=== PATIENT | female | born 1990 | race American Indian/Alaskan Native ===

== ENCOUNTER 2020-06-22 11:03 | Emergency (ER) | payer SELFPAY ==
[2020-06-22] MEDS ORDERED: ONDANSETRON 4 MG ODT TAB PO ONE (11:50)
[2020-06-22] MEDS ORDERED: HYDROcodone/ACETAMINOPHEN 5-325 MG TAB PO ONE (11:50)
--- NOTE | 2020-06-22 11:51 | Emergency Department Report ---
ED Back Pain/Injury HPI - General Chief Complaint: Urogenital-Female Stated Complaint: BACK PAIN Time Seen by Provider: 06/22/20 11:50 Source: patient Limitations: No Limitations - History of Present Illness Initial Comments: 30-year-old obese female presents to the ER today with complaints to the left lower back/left flank area that radiates around into the left abdomen. Patient states that she woke up with the pain yesterday. She states been a constant stabbing pain that sometimes radiates down into her thigh with associated nausea, as well as diarrhea. She states that she has had 4-6 episodes of watery stools last night and 2 episodes this morning. She denies any melena or hematochezia or mucus in the stool. She states that nothing seems to worsen the pain or makes it better. She reports urinary frequency but denies any other UTI symptoms. She denies any fever or chills. She denies any injury or strenuous activity that could result in the back pain. She has a history of PCOS, and a history of irregular menstrual cycles and her last menstrual cycle was about a year ago. She is not currently on any control. She reports no abnormal vaginal bleeding or discharge. She denies any bowel or bladder incontinence, lower extremity numbness, tingling or weakness or saddle anesthesia. She denies similar symptoms in the past. MD Complaint: back pain -: Sudden (yesterday ) - Related Data Previous Rx's Medication Instructions Recorded Last Taken Type Ibuprofen [Motrin 600 MG tab] 600 mg PO Q8H PRN #15 tablet 01/06/18 Unknown Rx Ketorolac [Toradol] 10 mg PO Q6H PRN #20 tablet 06/22/20 Unknown Rx Ondansetron [Zofran Odt] 4 mg PO Q8HR PRN #15 tab.rapdis 06/22/20 Unknown Rx methOCARBAMOL [Robaxin TAB] 750 mg PO Q8H PRN #30 tablet 06/22/20 Unknown Rx Allergies Allergy/AdvReac Type Severity Reaction Status Date / Time banana AdvReac Vomiting Verified 06/22/20 11:29 Latex, Natural Rubber AdvReac Vomiting Verified 06/22/20 11:29 ED Review of Systems ROS: Stated complaint: BACK PAIN Other details as noted in HPI Comment: All other systems reviewed and negative Constitutional: denies: chills, fever Eyes: denies: eye pain, eye discharge, vision change ENT: denies: ear pain, throat pain Respiratory: denies: cough, shortness of breath, SOB with exertion, SOB at rest, wheezing Cardiovascular: denies: chest pain, palpitations Endocrine: no symptoms reported Gastrointestinal: abdominal pain, nausea, diarrhea. denies: vomiting, constipation, hematemesis, melena, hematochezia Genitourinary: frequency. denies: urgency, dysuria, hematuria, discharge, abnormal menses Musculoskeletal: back pain Skin: denies: rash, lesions Neurological: denies: headache, weakness, numbness, paresthesias, confusion, abnormal gait, vertigo Psychiatric: denies: anxiety, depression, auditory hallucinations, visual hallucinations, homicidal thoughts, suicidal thoughts Hematological/Lymphatic: denies: easy bleeding, easy bruising ED Past Medical Hx - Past Medical History Hx Asthma: Yes - Social History Smoking Status: Never Smoker Substance Use Type: None - Medications Home Medications: Home Medications Medication Instructions Recorded Confirmed Last Taken Type Ibuprofen [Motrin 600 MG tab] 600 mg PO Q8H PRN #15 tablet 01/06/18 Unknown Rx Ketorolac [Toradol] 10 mg PO Q6H PRN #20 tablet 06/22/20 Unknown Rx Ondansetron [Zofran Odt] 4 mg PO Q8HR PRN #15 tab.rapdis 06/22/20 Unknown Rx methOCARBAMOL [Robaxin TAB] 750 mg PO Q8H PRN #30 tablet 06/22/20 Unknown Rx ED Physical Exam - General Limitations: No Limitations General appearance: alert, in distress (patient appears to be uncomfortable due to pain ), obese - Head Head exam: Present: atraumatic, normocephalic, normal inspection - Eye Eye exam: Present: normal appearance, PERRL, EOMI Pupils: Present: normal accommodation - ENT ENT exam: Present: normal exam, mucous membranes moist - Neck Neck exam: Present: normal inspection, full ROM - Respiratory Respiratory exam: Absent: normal lung sounds bilaterally, respiratory distress, wheezes - Cardiovascular Cardiovascular Exam: Present: regular rate, normal rhythm, normal heart sounds - GI/Abdominal GI/Abdominal exam: Present: soft, tenderness (LUQ, mild ). Absent: distended, guarding, rebound, rigid - Extremities Exam Extremities exam: Present: normal inspection, full ROM, normal capillary refill. Absent: tenderness, pedal edema, joint swelling, calf tenderness - Back Exam Back exam: Present: normal inspection, full ROM (but there is some pain on ROM of lumbar spine ), CVA tenderness (L), paraspinal tenderness (mild paraspinal muscle/soft tissue ttp mid to lower left lumbar area). Absent: vertebral tenderness - Neurological Exam Neurological exam: Present: alert, oriented X3, CN II-XII intact, normal gait. Absent: motor sensory deficit - Psychiatric Psychiatric exam: Present: normal affect, normal mood - Skin Skin exam: Present: intact ED Course Vital Signs 06/22/20 06/22/20 06/22/20 11:26 11:58 17:15 Temperature 98.4 F 98.6 F Pulse Rate 64 74 Respiratory 18 20 20 Rate Blood Pressure 141/86 Blood Pressure 138/84 [Left] O2 Sat by Pulse 95 98 Oximetry ED Medical Decision Making - Lab Data Result diagrams: 06/22/20 12:26 06/22/20 12:26 - Radiology Data Radiology results: report reviewed Patient: MARTINA ADKINS MR#: [id number] : 1990 Acct:[id number] Age/Sex: 30 / F ADM Date: 06/22/20 Loc: ED Attending Dr: Ordering Physician: CHALO QUEZADA Date of Service: 06/22/20 Procedure(s): CT abdomen pelvis wo con Accession Number(s): [id number] cc: CHALO QUEZADA CT ABDOMEN AND PELVIS WITHOUT CONTRAST INDICATION / CLINICAL INFORMATION: Left flank pain. TECHNIQUE: Axial CT images were obtained through the abdomen and pelvis without IV contrast. Sagittal and coronal reformatted images. All CT scans at this location are performed using CT dose reduction for ALARA by means of automated exposure control. COMPARISON: 01/06/2018 FINDINGS: LOWER CHEST: No significant abnormality. LIVER: Mild hepatomegaly with steatosis is unchanged. GALLBLADDER: No significant abnormality. BILE DUCTS: No significant abnormality. PANCREAS: No significant abnormality. SPLEEN: No significant abnormality. ADRENALS: No significant abnormality. RIGHT KIDNEY and URETER: No significant abnormality. LEFT KIDNEY and URETER: No significant abnormality. STOMACH and SMALL BOWEL: No significant abnormality. COLON: No significant abnormality. APPENDIX: No significant abnormality. PERITONEUM: No free fluid. No free air. No fluid collection. LYMPH NODES: No significant adenopathy. AORTA and ARTERIES: No significant abnormality. IVC and VEINS: No significant abnormality. URINARY BLADDER: No significant abnormality. REPRODUCTIVE ORGANS: No significant abnormality. ADDITIONAL FINDINGS: None. SKELETAL SYSTEM: Moderate degenerative disc disease at L5-S1. IMPRESSION: No acute process. No clear explanation for left flank pain. Mild hepatomegaly with steatosis, stable. Moderate degenerative changes at L5-S1. Signer Name: Be Churchill Jr, MD Signed: 06/22/2020 2:30 PM Workstation Name: [id number] Transcribed By: TTR Dictated By: BE CHURCHILL JR, MD Electronically Authenticated By: BE CHURCHILL JR, MD Signed Date/Time: 06/22/201429 DD/ 22 TD/TT: - Medical Decision Making 30-year-old obese female presents to the ER today with complaints to the left lower back/left flank area that radiates around into the left abdomen. Patient states that she woke up with the pain yesterday. She states been a constant stabbing pain that sometimes radiates down into her thigh with associated nausea, as well as diarrhea. She states that she has had 4-6 episodes of watery stools last night and 2 episodes this morning. She denies any melena or hematochezia or mucus in the stool. She states that nothing seems to worsen the pain or makes it better. She reports urinary frequency but denies any other UTI symptoms. She denies any fever or chills. She denies any injury or strenuous activity that could result in the back pain. She has a history of PCOS, and a history of irregular menstrual cycles and her last menstrual cycle was about a year ago. She is not currently on any control. She reports no abnormal vaginal bleeding or discharge. She denies any bowel or bladder incontinence, lower extremity numbness, tingling or weakness or saddle anesthesia. She denies similar symptoms in the past. 1705: Patient resting comfortably and is sitting up in bed on phone. She appears to be felling better. She is well appearing, not toxic, well hydrated, and she is neurologically intact with normal gait. Labs/CT reviewed - Other than elevated glucose of 171, remaining labs unremarkable. Patient denies hx of DM and she states she had a pop tart this morning but I did recommend that she follow up with PCP to continue monitoring her glucose levels. Her CT shows mod DDD lumbar spine but otherwise nothing acute. Informed patient that her pain could be coming from the DDD in her spine and therefore recommend follow up with ortho/web content specialist for outpatient MRI especially is her symptoms continues. There is no indication for additional work up, admission or specialist consult at this time. Patient expressed understanding of instructions and agreed with plan. patient stable a time of discharge. Critical care attestation.: If time is entered above; I have spent that time in minutes in the direct care of this critically ill patient, excluding procedure time. ED Disposition Clinical Impression: Lumbar pain, Flank pain, DJD (degenerative joint disease), lumbar, Diarrhea, Elevated blood sugar level Disposition: TO HOME OR SELFCARE Is pt being admited?: No Does the pt Need Aspirin: No Condition: Stable Instructions: Diarrhea, Adult, Acute Back Pain, Adult, Hyperglycemia, [id number]-Fxex, Degenerative Disk Disease Additional Instructions: Take the zofran, toradol and robaxin as prescribed. Drink lots of fluids. You can take immodium from over the counter if you continue to have diarrhea. I recommend that you follow up with Primary care physician listed on your discharge instructions to continue monitoring your blood sugars and and the web content specialist ([facility]) for evaluation of your back pain especially if your back pain continues, you may need outpatient MRI. Return to the ER if your symptoms changes or worsens in any way. Prescriptions: methOCARBAMOL [Robaxin TAB] 750 mg PO Q8H PRN #30 tablet PRN Reason: pain/spasm Ketorolac [Toradol] 10 mg PO Q6H PRN #20 tablet PRN Reason: Pain Ondansetron [Zofran Odt] 4 mg PO Q8HR PRN #15 tab.rapdis PRN Reason: Nausea Referrals: MANDI CAMERON MD [Staff Physician] - 3-5 Days Forms: Work/School Release Form(ED) Time of Disposition: 15:13
[2020-06-22 12:44] LABS: Basophils # (Auto) 0.1 K/mm3 (0.0-0.1); Basophils % (Auto) 0.9 % (0.0-1.8); Eosinophils # (Auto) 0.4 K/mm3 (0.0-0.4); Eosinophils % (Auto) 6.2 % (0.0-4.3); Hematocrit 38.2 % (30.3-42.9); Lymphocytes # (Auto) 2.3 K/mm3 (1.2-5.4); Lymphocytes % (Auto) 38.7 % (13.4-35.0); Mean Corpuscular HGB Conc 34 % (30-34); Mean Corpuscular Volume 98 fl (79-97); Monocytes # (Auto) 0.3 K/mm3 (0.0-0.8); Monocytes % (Auto) 5.3 % (0.0-7.3); Platelet Count 326 K/mm3 (140-440); Red Blood Count 3.91 M/mm3 (3.65-5.03)
[2020-06-22 13:35] LABS: Bilirubin,Urine NEG (Negative); Blood,Urine NEG (Negative); Color,Urine Yellow (Yellow); Mucus,Urine 1+ /HPF; Protein,Urine <15 mg/dL mg/dL (Negative); Urobilinogen,Urine < 2.0 mg/dL (<2.0)
--- NOTE | 2020-06-22 14:35 | Cat Scan Report ---
CT ABDOMEN AND PELVIS WITHOUT CONTRAST INDICATION / CLINICAL INFORMATION: Left flank pain. TECHNIQUE: Axial CT images were obtained through the abdomen and pelvis without IV contrast. Sagittal and rodriguez l reformatted images. All CT scans at this location are performed using CT dose reduction for ALARA b y means of automated exposure control. COMPARISON: 01/06/2018 FINDINGS: LOWER CHEST: No significant abnormality. LIVER: Mild hepatomegaly with steatosis is unchanged. GALLBLADDER: No significant abnormality. BILE DUCTS: No significant abnormality. PANCREAS: No significant abnormality. SPLEEN: No significant abnormality. ADRENALS: No significant abnormality. RIGHT KIDNEY and URETER: No significant abnormality. LEFT KIDNEY and URETER: No significant abnormality. STOMACH and SMALL BOWEL: No significant abnormality. COLON: No significant abnormality. APPENDIX: No significant abnormality. PERITONEUM: No free fluid. No free air. No fluid collection. LYMPH NODES: No significant adenopathy. AORTA and ARTERIES: No significant abnormality. IVC and VEINS: No significant abnormality. URINARY BLADDER: No significant abnormality. REPRODUCTIVE ORGANS: No significant abnormality. ADDITIONAL FINDINGS: None. SKELETAL SYSTEM: Moderate degenerative disc disease at L5-S1. IMPRESSION: No acute process. No clear explanation for left flank pain. Mild hepatomegaly with steatosis, stable. Moderate degenerative changes at L5-S1. Signer Name: Be Churchill Jr, MD Signed: 06/22/2020 2:30 PM Workstation Name: [id number]
[2020-06-22 14:56] LABS: Alanine Aminotransferase 38 units/L (7-56); Albumin 3.9 g/dL (3.9-5); Blood Urea Nitrogen 5 mg/dL (7-17); Calcium 8.4 mg/dL (8.4-10.2); Hemolysis Index 12
[2020-06-22 15:01] LABS: BUN/Creatinine Ratio 7
[2020-06-22 17:16] VITALS: BP 138/84
== END 2020-06-22 17:16 | disposition home or self-care (01) ==
LOC: ED 11:03
DX: M51.36 Other intervertebral disc degeneration, lumbar region (principal); R73.9 Hyperglycemia, unspecified; J45.909 Unspecified asthma, uncomplicated; Z79.899 Other long term (current) drug therapy
CPT/HCPCS: 36415; 74176; 80053; 81001; 83690; 83735; 84703; 85025; Q0162

== ENCOUNTER 2020-11-01 09:35 | Emergency (ER) | payer SELFPAY ==
--- NOTE | 2020-11-01 10:55 | Emergency Department Report ---
ED Syncope HPI - General Chief Complaint: Medical Clearance Stated Complaint: IRON LOW Time Seen by Provider: 11/01/20 10:42 Source: patient Exam Limitations: no limitations - History of Present Illness Initial Comments: This is a 30-year-old female who presents to the emergency room after syncopal episode. Patient states she passed out while at work. Her coworker brought her in for further evaluation. Patient states she has had to give plasma 1 week ago and was denied due to low iron. She was referred to the emergency room for follow-up but did not go. Patient states she did not go because she did not have any symptoms. Reports LMP 10/09/20 was very heavy. States this happens every quarter due to PCOS. She reports dizziness is worse with transitions. She denies visual changes, fever, chills, headache, or injury. Timing/Prior Episodes: no prior history, single episode today Precipitating Factors: Positive: lightheadedness Context: standing Loss of Consciousness: no loss of consciousness Current Symptoms: dizziness - Related Data Allergies/Adverse Reactions: Allergies banana Adverse Reaction (Verified 06/22/20 11:29) Vomiting Latex, Natural Rubber Adverse Reaction (Verified 06/22/20 11:29) Vomiting Home Medications: Ambulatory Orders Ibuprofen [Motrin 600 MG tab] 600 mg PO Q8H PRN #15 tablet 01/06/18 Ketorolac [Toradol] 10 mg PO Q6H PRN #20 tablet 06/22/20 Ondansetron [Zofran Odt] 4 mg PO Q8HR PRN #15 tab.rapdis 06/22/20 methOCARBAMOL [Robaxin TAB] 750 mg PO Q8H PRN #30 tablet 06/22/20 ED Review of Systems ROS: Stated complaint: IRON LOW Other details as noted in HPI Constitutional: denies: chills, fever ENT: denies: ear pain, throat pain Respiratory: denies: cough, shortness of breath, wheezing Cardiovascular: denies: chest pain, palpitations Gastrointestinal: denies: abdominal pain, nausea, diarrhea Neurological: vertigo. denies: headache, weakness, paresthesias Psychiatric: denies: anxiety, depression ED Past Medical Hx - Past Medical History Previous Medical History?: Yes Hx Asthma: Yes - Surgical History Past Surgical History?: No - Social History Smoking Status: Never Smoker Substance Use Type: None - Medications Home Medications: Home Medications Medication Instructions Recorded Confirmed Last Taken Type Ibuprofen [Motrin 600 MG tab] 600 mg PO Q8H PRN #15 tablet 01/06/18 Unknown Rx Ketorolac [Toradol] 10 mg PO Q6H PRN #20 tablet 06/22/20 Unknown Rx Ondansetron [Zofran Odt] 4 mg PO Q8HR PRN #15 tab.rapdis 06/22/20 Unknown Rx methOCARBAMOL [Robaxin TAB] 750 mg PO Q8H PRN #30 tablet 06/22/20 Unknown Rx ED Physical Exam - General Limitations: No Limitations General appearance: alert, in no apparent distress, obese - Eye Eye exam: Present: normal appearance, EOMI. Absent: nystagmus Pupils: Present: normal accommodation - ENT ENT exam: Present: mucous membranes moist - Respiratory Respiratory exam: Present: normal lung sounds bilaterally. Absent: respiratory distress - Cardiovascular Cardiovascular Exam: Present: regular rate, normal rhythm. Absent: systolic murmur, diastolic murmur, rubs, gallop - Neurological Exam Neurological exam: Present: alert, oriented X3, CN II-XII intact, reflexes normal - Psychiatric Psychiatric exam: Present: normal affect, normal mood - Skin Skin exam: Present: warm, dry, intact, normal color. Absent: rash ED Course Vital Signs 11/01/20 11/01/20 11/01/20 10:18 11:44 17:16 Temperature 98.3 F 97.8 F Pulse Rate 64 58 L Respiratory 18 12 16 Rate Blood Pressure 148/73 Blood Pressure 126/74 [Right] O2 Sat by Pulse 98 98 98 Oximetry ED Medical Decision Making - Lab Data Result diagrams: 11/01/20 11:40 11/01/20 11:40 Vital Signs 11/01/20 11/01/20 11/01/20 10:18 11:44 17:16 Temperature 98.3 F 97.8 F Pulse Rate 64 58 L Respiratory 18 12 16 Rate Blood Pressure 148/73 Blood Pressure 126/74 [Right] O2 Sat by Pulse 98 98 98 Oximetry Lab Results 11/01/20 11/01/20 Range/Units 11:40 11:40 WBC 7.4 (4.5-11.0) K/mm3 RBC 3.69 (3.65-5.03) M/mm3 Hgb 12.5 (10.1-14.3) gm/dl Hct 36.2 (30.3-42.9) % MCV 98 H (79-97) fl MCH 34 H (28-32) pg MCHC 35 H (30-34) % RDW 13.1 L (13.2-15.2) % Plt Count 416 (140-440) K/mm3 Lymph % (Auto) 35.7 H (13.4-35.0) % Sequoyah % (Auto) 5.3 (0.0-7.3) % Eos % (Auto) 7.5 H (0.0-4.3) % Baso % (Auto) 1.0 (0.0-1.8) % Lymph # (Auto) 2.7 (1.2-5.4) K/mm3 Sequoyah # (Auto) 0.4 (0.0-0.8) K/mm3 Eos # (Auto) 0.6 H (0.0-0.4) K/mm3 Baso # (Auto) 0.1 (0.0-0.1) K/mm3 Seg Neutrophils % 50.5 (40.0-70.0) % Seg Neutrophils # 3.8 (1.8-7.7) K/mm3 Sodium 142 (137-145) mmol/L Potassium 4.0 (3.6-5.0) mmol/L Chloride 103.3 (98-107) mmol/L Carbon Dioxide 27 (22-30) mmol/L Anion Gap 16 mmol/L BUN 8 (7-17) mg/dL Creatinine 0.6 (0.6-1.2) mg/dL Estimated GFR > 60 ml/min BUN/Creatinine Ratio 13 % Glucose 115 H (65-100) mg/dL Calcium 9.8 (8.4-10.2) mg/dL Total Bilirubin 0.70 (0.1-1.2) mg/dL AST 34 (5-40) units/L ALT 27 (7-56) units/L Alkaline Phosphatase 73 (35-129) units/L Total Protein 7.4 (6.3-8.2) g/dL Albumin 4.3 (3.9-5) g/dL Albumin/Globulin Ratio 1.4 % - Radiology Data Radiology results: report reviewed . CT head/brain wo con INDICATION: SYNCOPE. TECHNIQUE: All CT scans at this location are performed using CT dose reduction for ALARA by means of automated exposure control. COMPARISON: None available. FINDINGS: There is no evidence of hemorrhage, hydrocephalus, brain edema, or mass effect/mass lesion. There is overall normal brain formation and brain volume for the patient's age. Ventricular and cisternal/sulcal size is normal for age. The included paranasal sinuses and mastoid air cells are clear. The orbits appear unremarkable. IMPRESSION: 1. No acute intracranial abnormality. Signer Name: Huey Baez MD Signed: 11/01/2020 2:20 PM Workstation Name: [id number] - Medical Decision Making 30 y.o. female that presents with dizziness and near syncopal episode today. Denies asthma, SOB, palpations, fever, or dyspnea. Vitals stable. All labs unremarkable for emergent chest pain. Based on history, exam, and findings, presentation not consistent with seizure, stroke, symptomatic anemia, acute infectious process. Prior to discharge symptoms are controlled and patient is well-appearing. Referrals given for PCP follow-up. Discharged home stable. Follow up with PCP in 24-48 hours. Given strict return instructions. Critical care attestation.: If time is entered above; I have spent that time in minutes in the direct care of this critically ill patient, excluding procedure time. ED Disposition Clinical Impression: Dizziness of unknown cause Disposition: 01 HOME / SELF CARE / HOMELESS Is pt being admited?: No Condition: Stable Instructions: Near-Syncope, Bmst-as-Tboy, Dizziness Referrals: [facility] [Provider Group] - 3-5 Days [facility] [Outside] - 3-5 Days Forms: Work/School Release Form(ED) Time of Disposition: 16:28
[2020-11-01] MEDS ORDERED: SODIUM CHLORIDE 0.9% 1000 ML 1,000 ML IV ONE (11:57)
[2020-11-01 12:33] LABS: Basophils # (Auto) 0.1 K/mm3 (0.0-0.1); Eosinophils # (Auto) 0.6 K/mm3 (0.0-0.4); Eosinophils % (Auto) 7.5 % (0.0-4.3); Hematocrit 36.2 % (30.3-42.9); Hemoglobin 12.5 gm/dl (10.1-14.3); Lymphocytes # (Auto) 2.7 K/mm3 (1.2-5.4); Lymphocytes % (Auto) 35.7 % (13.4-35.0); Mean Corpuscular HGB Conc 35 % (30-34); Mean Corpuscular Volume 98 fl (79-97); Monocytes # (Auto) 0.4 K/mm3 (0.0-0.8); Monocytes % (Auto) 5.3 % (0.0-7.3); Platelet Count 416 K/mm3 (140-440); Red Blood Count 3.69 M/mm3 (3.65-5.03); Red Cell Distribution Width 13.1 % (13.2-15.2)
[2020-11-01 12:44] LABS: Alanine Aminotransferase 27 units/L (7-56); Albumin 4.3 g/dL (3.9-5); Blood Urea Nitrogen 8 mg/dL (7-17); Calcium 9.8 mg/dL (8.4-10.2); Hemolysis Index 4
[2020-11-01 12:53] LABS: BUN/Creatinine Ratio 13
[2020-11-01] MEDS ORDERED: KETOROLAC 30 MG/1 ML INJ IV ONE (13:18)
--- NOTE | 2020-11-01 14:25 | Cat Scan Report ---
. CT head/brain wo con INDICATION: SYNCOPE. TECHNIQUE: All CT scans at this location are performed using CT dose reduction for ALARA by means of automated e xposure control. COMPARISON: None available. FINDINGS: There is no evidence of hemorrhage, hydrocephalus, brain edema, or mass effect/mass lesion. There is overall normal brain formation and brain volume for the patient's age. Ventricular and cisternal/sulc al size is normal for age. The included paranasal sinuses and mastoid air cells are clear. The orbits appear unremarkable. IMPRESSION: 1. No acute intracranial abnormality. Signer Name: Huey Baez MD Signed: 11/01/2020 2:20 PM Workstation Name: [id number]
[2020-11-01 17:17] VITALS: BP 148/73
== END 2020-11-01 19:33 | disposition home or self-care (01) ==
LOC: ED 09:35
DX: R42 Dizziness and giddiness (principal); R55 Syncope and collapse
CPT/HCPCS: 36415; 70450; 80053; 85025; 96361; 96374; 99284; J7030

== ENCOUNTER 2021-10-17 19:58 | Emergency (ER) | payer SELFPAY ==
[2021-10-17] MEDS ORDERED: IPRATROPIUM/ALBUTEROL SULFATE 3 ML AMPUL.NEB IH ONE ×2 (20:08→20:09)
[2021-10-17] MEDS ORDERED: predniSONE 50 MG TAB PO STA (21:14)
--- NOTE | 2021-10-17 21:17 | Emergency Department Report ---
ED General Adult HPI - General Chief complaint: Upper Respiratory Infection Stated complaint: LAUREN Time Seen by Provider: 10/17/21 21:13 Source: patient Mode of arrival: Ambulatory Limitations: No Limitations - History of Present Illness Initial comments: 31-year-old obese female with medical history of asthma [facility] emerged department complaining of a 2-day history of cough, chills, muscle aches, congestion, coryza, shortness of breath with heavy mucus. Production and wheezing with a sudden onset. No diarrhea or rash reported. No hemoptysis no hematemesis hematochezia -: Gradual, days(s) (3) Location: chest Radiation: non-radiation Quality: burning, aching Consistency: constant Improves with: none Worsens with: none Associated Symptoms: cough, fever/chills, malaise, shortness of breath. denies: nausea/vomiting, rash, seizure, syncope, weakness - Related Data Previous Rx's Medication Instructions Recorded Last Taken Type Ibuprofen [Motrin 600 MG tab] 600 mg PO Q8H PRN #15 tablet 01/06/18 Unknown Rx Ketorolac [Toradol] 10 mg PO Q6H PRN #20 tablet 06/22/20 Unknown Rx Ondansetron [Zofran Odt] 4 mg PO Q8HR PRN #15 tab.rapdis 06/22/20 Unknown Rx methOCARBAMOL [Robaxin TAB] 750 mg PO Q8H PRN #30 tablet 06/22/20 Unknown Rx Albuterol Mdi (or & Nicu Only) 2 puff IH QID PRN #1 inhalation 10/17/21 Unknown Rx [ProAir HFA Inhaler] Benzonatate [Tessalon Perles] 100 mg PO Q8HR #20 capsule 10/17/21 Unknown Rx Montelukast [Singulair] 10 mg PO QPM #14 tablet 10/17/21 Unknown Rx predniSONE [Deltasone] 50 mg PO QDAY #5 tab 10/17/21 Unknown Rx Allergies Allergy/AdvReac Type Severity Reaction Status Date / Time banana AdvReac Vomiting Verified 06/22/20 11:29 Latex, Natural Rubber AdvReac Vomiting Verified 06/22/20 11:29 ED Review of Systems ROS: Stated complaint: LAUREN Other details as noted in HPI Comment: All other systems reviewed and negative ED Past Medical Hx - Past Medical History Hx Asthma: Yes - Social History Smoking Status: Never Smoker Substance Use Type: None - Medications Home Medications: Home Medications Medication Instructions Recorded Confirmed Last Taken Type Ibuprofen [Motrin 600 MG tab] 600 mg PO Q8H PRN #15 tablet 01/06/18 Unknown Rx Ketorolac [Toradol] 10 mg PO Q6H PRN #20 tablet 06/22/20 Unknown Rx Ondansetron [Zofran Odt] 4 mg PO Q8HR PRN #15 tab.rapdis 06/22/20 Unknown Rx methOCARBAMOL [Robaxin TAB] 750 mg PO Q8H PRN #30 tablet 06/22/20 Unknown Rx Albuterol Mdi (or & Nicu Only) 2 puff IH QID PRN #1 inhalation 10/17/21 Unknown Rx [ProAir HFA Inhaler] Benzonatate [Tessalon Perles] 100 mg PO Q8HR #20 capsule 10/17/21 Unknown Rx Montelukast [Singulair] 10 mg PO QPM #14 tablet 10/17/21 Unknown Rx predniSONE [Deltasone] 50 mg PO QDAY #5 tab 10/17/21 Unknown Rx ED Physical Exam - General Limitations: No Limitations General appearance: alert, in no apparent distress - Head Head exam: Present: atraumatic, normocephalic - Eye Eye exam: Present: normal appearance, PERRL, EOMI Pupils: Present: normal accommodation - ENT ENT exam: Present: normal exam, normal orophraynx, mucous membranes moist, TM's normal bilaterally - Neck Neck exam: Present: normal inspection, full ROM - Respiratory Respiratory exam: Present: normal lung sounds bilaterally, wheezes. Absent: respiratory distress, rales, rhonchi, chest wall tenderness, decreased breath sounds, prolonged expiratory - Cardiovascular Cardiovascular Exam: Present: regular rate, normal rhythm. Absent: systolic murmur, diastolic murmur, rubs, gallop - GI/Abdominal GI/Abdominal exam: Present: soft, normal bowel sounds - Extremities Exam Extremities exam: Present: normal inspection, normal capillary refill - Back Exam Back exam: Present: normal inspection. Absent: CVA tenderness (R), CVA tendern ess (L) - Neurological Exam Neurological exam: Present: alert, oriented X3, CN II-XII intact, normal gait - Psychiatric Psychiatric exam: Present: normal affect, normal mood - Skin Skin exam: Present: warm, dry, intact, normal color. Absent: rash ED Course Vital Signs 10/17/21 10/17/21 10/17/21 20:04 20:36 23:44 Temperature 98.9 F 98.2 F Pulse Rate 93 H 92 H 100 H Respiratory 18 20 18 Rate Blood Pressure 177/88 155/97 Blood Pressure 154/94 [Left] O2 Sat by Pulse 95 95 95 Oximetry 10/18/21 00:00 Temperature Pulse Rate 98 H Respiratory 24 Rate Blood Pressure Blood Pressure 111/63 [Left] O2 Sat by Pulse 95 Oximetry ED Medical Decision Making - Radiology Data Radiology results: report reviewed [facility] [address] [place] [address] XRay Report Signed Patient: MARTINA ADKINS MR#: [id number] : 1990 Acct:[id number] Age/Sex: 31 / F ADM Date: 10/17/21 Loc: ED Attending Dr: Ordering Physician: HIGINIO DIAZ Date of Service: 10/17/21 Procedure(s): XR chest routine 2V Accession Number(s): [id number] cc: HIGINIO DIAZ Fluoro Time In Minutes: CHEST 2 VIEWS INDICATION / CLINICAL INFORMATION: cough and wheezing. COMPARISON: None available. FINDINGS: SUPPORT DEVICES: None. HEART / MEDIASTINUM: No significant abnormality. LUNGS / PLEURA: There is mild bilateral peribronchial thickening without other significant pulmonary abnormalities. No significant pleural effusion. No pneumothorax. ADDITIONAL FINDINGS: No significant additional findings. IMPRESSION: Mild bilateral peribronchial thickening could represent bronchitis or reactive airway disease. No other acute findings. Signer Name: Mitesh Lopez MD Signed: 10/17/2021 10:07 PM Workstation Name: [id number] Transcribed By: [place] Dictated By: Mitesh Lopez MD Electronically Authenticated By: Mitesh Lopez MD Signed Date/Time: 10/17/212206 DD/ 05 TD/TT: Print Cancel - Medical Decision Making This patient presents with acute cough, most consistent with bronchitis. Differential diagnosis includes asthma exacerbation, bronchitis, COVID-19, pneumonia, influenza. Presentation not consistent with acute bacterial pneumonia, influenza, asthma, transient airway hyperresponsiveness. Presentation not consistent with chronic causes of cough (including GERD, asthma, postnasal discharge, medication side effect, CHF, lung cancer or mass). Plan: Bronchitis on chest x-ray CXR, supportive care, reassess This patient presents to the emergency department with fever and lower respiratory symptoms concerning for viral syndrome including flu and COVID-19. Patient has suspicion and is for COVID-19 infection. Differential diagnosis includes other viral causes of lower respiratory symptoms, pneumonia, asthma, bronchitis. Patient is well-appearing with acceptable vitals, lacks comorbidities admission and a reassuring physical examination and is safe to be discharged home nasal swab for COVID testing is recommended. Provide strict return precautions and instructions on self isolation/quarantine and anticipatory guidance. Critical care attestation.: If time is entered above; I have spent that time in minutes in the direct care of this critically ill patient, excluding procedure time. ED Disposition Clinical Impression: Bronchitis, Cough in adult Disposition: 01 HOME / SELF CARE / HOMELESS Is pt being admited?: No Does the pt Need Aspirin: No Condition: Stable Instructions: Cool Mist Vaporizer, Asthma, Adult, COVID-19 Frequently Asked Questions, Cough, Adult, [id number], Cough, Adult, How to Use a Dry Powder Inhaler, [id number], COVID-19, Chronic Bronchitis (ED) Additional Instructions: You were seen and evaluated in the emergency department today for cough congestion and wheezing. Symptoms are highly suggestive of COVID-19 or influenza please be sure to follow-up with your primary care provider to be screened for COVID-19. At this present time will quarantine until you receive your negative COVID test and take medication as prescribed to ensure that your respiratory status continues to improve. You were seen in emergency department today for shortness of breath. Symptoms improved with albuterol and steroids and your evaluation did not show evidence of any medical conditions requiring emergent intervention at this time. You have been given a prescription for steroids and an inhaler please take them as directed. Please follow-up with your primary care physician within 2 days. Return to emerge department if you experience worsening shortness of breath, chest pain, headache, lightheadedness or any other symptoms sick suggestion your condition is worsening Prescriptions: predniSONE [Deltasone] 50 mg PO QDAY #5 tab Albuterol Mdi (or & Nicu Only) [ProAir HFA Inhaler] 2 puff IH QID PRN #1 inhalation PRN Reason: Shortness Of Breath Montelukast [Singulair] 10 mg PO QPM #14 tablet Benzonatate [Tessalon Perles] 100 mg PO Q8HR #20 capsule Referrals: MANDI CAMERON MD [Primary Care Provider] - 3-5 Days
[2021-10-17] MEDS ORDERED: ALBUTEROL 2.5 MG/3 ML NEBU IH STA (21:42)
--- NOTE | 2021-10-17 22:12 | XRay Report ---
CHEST 2 VIEWS INDICATION / CLINICAL INFORMATION: cough and wheezing. COMPARISON: None available. FINDINGS: SUPPORT DEVICES: None. HEART / MEDIASTINUM: No significant abnormality. LUNGS / PLEURA: There is mild bilateral peribronchial thickening without other significant pulmonary abnormalities. No significant pleural effusion. No pneumothorax. ADDITIONAL FINDINGS: No significant additional findings. IMPRESSION: Mild bilateral peribronchial thickening could represent bronchitis or reactive airway disease. No oth er acute findings. Signer Name: Mitesh Lopez MD Signed: 10/17/2021 10:07 PM Workstation Name: [id number]
[2021-10-17] MEDS ORDERED: EPINEPHrine/PF 1 MG/1 ML INJ SUB-Q ONE (23:26)
[2021-10-17] MEDS ORDERED: MAGNESIUM SULFATE 2 GM/50 ML BAG IV ONE (23:26)
[2021-10-18 04:51] VITALS: BP 152/89
[2021-10-18] MEDS ORDERED: IPRATROPIUM/ALBUTEROL SULFATE 3 ML AMPUL.NEB IH SCH (08:00)
== END 2021-10-18 04:51 | disposition home or self-care (01) ==
LOC: ED 19:58
DX: J40 Bronchitis, not specified as acute or chronic (principal); R05.9 Cough, unspecified; Z91.02 Food additives allergy status; Z91.040 Latex allergy status
CPT/HCPCS: 71046; 94640; 96365; 99284; J0171; J3475; J7512